=== PATIENT | male | born 1990 | race Caucasian/White ===

== ENCOUNTER → 2016-06-03 | Outpatient (CLI) | payer OTHER ==
[~2016-06-03] MED LIST: CEPH500C2 PO
== END | disposition home or self-care (01) ==
LOC: C.LAB 04:08
DX: Z02.83 Encounter for blood-alcohol and blood-drug test (principal)

== ENCOUNTER 2016-11-03 21:15 | Emergency (ER) | payer OTHER ==
[~2016-11-03] VITALS: Ht 172.7 cm; Wt 101.5 kg
[2016-11-03 21:19] VITALS: TEMP 37.2; Ht 172.7 cm; Wt 101.5 kg
[2016-11-03] MEDS ORDERED: DIPHTHERIA/TETANUS/PERTUSSIS 0.5 ML SYR/VIAL IM. ONE (21:30)
[2016-11-03] MEDS ORDERED: LIDOCAINE/EPINEPH/TETRACAINE 1 EA SYR EXT STA ×2 (21:30)
[2016-11-03] MEDS ORDERED: SODIUM CHLORIDE 0.9% 1000ML 1,000 ML IV STA ×2 (21:30)
[2016-11-03] MEDS ORDERED: CEFEPIME IV 2,000 MG in DEXTROSE 5% 100ML 100 ML IV STA (21:44)
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
[2016-11-03] MEDS ORDERED: BACITRACIN OINT 15 GM TUBE ONE ×2 (22:16→22:25)
[2016-11-03 22:17] LABS: BASO % 0.2 %; BASO ABS # 0.03 K/uL (0-0.2); COMPLETE YES; EOS % 0.5 %; HEMATOCRIT 42.4 % (42-52); IG% 0.6 %; LYMPH % 6.3 %; LYMPH ABS # 1.25 K/uL (1.2-3.4); MEAN CORPUSCULAR HEMOGLOBIN 30.7 pg (25-34); MEAN CORPUSCULAR HGB CONC 34.9 g/dl (32-36); MEAN PLATELET VOLUME 9.2 fL (7.4-10.4); MONO % 7.1 %; NEUT % 85.3 %; PLATELET COUNT 292 K/uL (130-400); RED BLOOD COUNT 4.82 M/uL (4.7-6.1); WHITE BLOOD COUNT 19.83 K/uL (4.8-10.8)
[2016-11-03 22:33] LABS: BUN/CREATININE RATIO 15.4 (10-20); CALCIUM 8.5 mg/dl (8.5-10.1); CREATININE 1.1 mg/dl (0.60-1.40); POTASSIUM 3.7 mmol/L (3.5-5.1)
[2016-11-04] MEDS ORDERED: LIDOCAINE HCL 1% 20 ML VIAL ONE (00:09)
[2016-11-04] MEDS ORDERED: BACITRACIN OINT 15 GM TUBE EXT ONE (00:30)
[2016-11-04] MEDS ORDERED: CEPHALEXIN 500MG HOME PACK 1 EA BTL PO ONE (00:30)
[2016-11-04] MEDS ORDERED: CEPH500C2 PO (00:31)
[2016-11-04 01:05] VITALS: BP 134/84; PULSE 102; O2SAT 98
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
[2016-11-06 15:58] LABS: ISTAT CREATININE 0.9 mg/dl (0.6-1.3); ISTAT HEMOGLOBIN 15.3 g/dl (14.0-18.0); ISTAT IONIZED CALCIUM 1.12 mmol/l (1.12-1.32)
== END 2016-11-04 01:00 | disposition home or self-care (01) ==
LOC: EDBD 21:15 → C.EDB 21:19
DX: S01.01XA Laceration without foreign body of scalp, initial encounter (principal); S01.81XA Laceration without foreign body of other part of head, initial encounter; S01.111A Laceration without foreign body of right eyelid and periocular area, initial encounter; V28.0XXA Motorcycle driver injured in noncollision transport accident in nontraffic accident, initial encounter; Y93.89 Activity, other specified; Y99.8 Other external cause status; Z23 Encounter for immunization

== ENCOUNTER → 2017-06-11 | Outpatient (CLI) | payer OTHER ==
[2017-06-11 17:17] LABS: BASO % 0.4 %; BASO ABS # 0.04 K/uL (0-0.2); EOS % 5.2 %; EOS ABS # 0.47 K/uL (0-0.5); HEMOGLOBIN 13.5 g/dL (14.0-18.0); IG# 0.05 K/uL (0.00-0.02); LYMPH % 35.6 %; LYMPH ABS # 3.23 K/uL (1.2-3.4); MEAN CELL VOLUME 86.4 fL (80-100); MEAN CORPUSCULAR HEMOGLOBIN 29.2 pg (25-34); MEAN CORPUSCULAR HGB CONC 33.8 g/dl (32-36); MEAN PLATELET VOLUME 9.2 fL (7.4-10.4); MONO % 10.2 %; MONO ABS # 0.93 K/uL (0.11-0.59); NEUT ABS # 4.36 K/uL (1.4-6.5); PLATELET COUNT 320 K/uL (130-400); RED CELL DISTRIBUTION WIDTH CV 13.4 % (11.5-14.5); RED CELL DISTRIBUTION WIDTH SD 42.4 fL (36.4-46.3); WHITE BLOOD COUNT 9.08 K/uL (4.8-10.8)
[2017-06-11 17:37] LABS: ALBUMIN 3.5 gm/dl (3.4-5.0); ALT/SGPT 30 U/L (12-78); BLOOD UREA NITROGEN 20 mg/dl (7-18); CALCIUM 8.7 mg/dl (8.5-10.1); CARBON DIOXIDE 28 mmol/L (21-32); CREATININE 0.97 mg/dl (0.60-1.40); GLUCOSE 90 mg/dl (70-99); POTASSIUM 3.8 mmol/L (3.5-5.1); SODIUM 139 mmol/L (136-145)
[2017-06-11 17:40] LABS: ALKALINE PHOSPHATASE 93 U/L (45-117); AST/SGOT 19 U/L (15-37); TOTAL PROTEIN 8.2 gm/dl (6.4-8.2)
== END | disposition home or self-care (01) ==
LOC: C.LAB1850 16:18
PROVIDERS: ATTEND Nurse Practitioner Adult Health
DX: R19.7 Diarrhea, unspecified (principal)

== ENCOUNTER → 2017-06-15 | Outpatient (CLI) | payer OTHER | END | disposition home or self-care (01) | LOC: C.LABSPEC 10:37 | PROVIDERS: ATTEND Nurse Practitioner Adult Health | DX: K92.1 Melena (principal); R19.7 Diarrhea, unspecified ==

== ENCOUNTER → 2017-08-16 | Outpatient (CLI) | payer BC ==
[2017-08-20 16:05] LABS: QUANTIF MITOGEN-NIL 8.68 IU/ML; QUANTIFERON NEGATIVE (NEGATIVE); QUANTIFERON NIL 0.02 IU/ML
== END | disposition home or self-care (01) ==
LOC: C.LABSPEC 12:17
PROVIDERS: ATTEND Internal Medicine Gastroenterology
DX: K50.80 Crohn's disease of both small and large intestine without complications (principal)